=== PATIENT | female | born 1960 | race Caucasian/White ===

== ENCOUNTER 2019-05-01 09:00 | Outpatient (CLI) | payer OTHER | END 2019-05-01 10:00 | disposition home or self-care (01) | LOC: D.MAMMO 09:00 | PROVIDERS: ATTEND Family Medicine Adult Medicine | DX: Z12.31 Encounter for screening mammogram for malignant neoplasm of breast (principal) ==

== ENCOUNTER 2020-11-18 15:15 | Outpatient (CLI) | payer OTHER | END 2020-11-18 23:59 | disposition home or self-care (01) | LOC: D.MAMMO 15:15 | PROVIDERS: ATTEND Family Medicine Adult Medicine | DX: Z12.31 Encounter for screening mammogram for malignant neoplasm of breast (principal) ==